=== PATIENT | male | born 1980 | race Caucasian/White ===

== ENCOUNTER → 2020-12-24 | Day surgery (SDC) | payer OTHER ==
[~2020-12-24] MED LIST: LEXAPRO20 MG PO; NORCO 5-325 TA1 EACH PO
[2020-12-24 09:05] LABS: HCT 48.6 % (42.0-52.0); HGB 16.6 g/dl (13.2-18.0); MCH 29.9 pg (25.0-31.0); MCHC 34.2 g/dL (32.0-36.0); MCV 87.6 fL (78.0-100.0); MPV 9.8 fL (6.0-9.5); RBC 5.55 M/uL (4.70-6.00); RDW 13.2 % (11.5-14.0); WBC 8.4 K/uL (4.0-10.5)
== END | disposition home or self-care (01) ==
LOC: FAS 07:57
PROVIDERS: Legal Medicine
DX: S83.31XA Tear of articular cartilage of right knee, current, initial encounter (principal); S83.241A Other tear of medial meniscus, current injury, right knee, initial encounter; F17.210 Nicotine dependence, cigarettes, uncomplicated; Z95.9 Presence of cardiac and vascular implant and graft, unspecified
CPT/HCPCS: 36415; J0690; J1170; J2250; J2274; J2405; J2704; J3010; J7120